=== PATIENT | male | born 1955 | race Caucasian/White ===

== ENCOUNTER 2020-09-14 17:39 | Inpatient (IN) ==
[2020-09-14] MEDS ORDERED: Furosemide 40 mg/4 ml IV VIAL IV SLOW PU ONE (18:41)
[2020-09-14 18:54] LABS: ABS Basophils 0.1 10^3/ul (0-0.2); ABS Eosinophils 0.1 10^3/ul (0-0.6); ABS Lymphocytes 1.3 10^3/ul (1.0-4.8); ABS Monocytes 0.7 10^3/ul (0-0.8); ABS Neutrophils 8.1 10^3/ul (1.5-7.7); Eosinophil % 0.5 %; Hematocrit 46 % (42-52); Hemoglobin 14.6 g/dL (14.0-18.0); Lymphocyte % 13.1 %; Mean Corpuscular HGB Conc 32 g/dL (31-36); Mean Corpuscular Hemoglobin 28 pg (27-31); Mean Corpuscular Volume 88 fL (80-94); Mean Platelet Volume 8.7 fL (7.4-10.4); Nucleated Red Blood Cells % 0.2; Platelet Count 255 10^3/uL (150-450); Red Blood Count 5.22 10^6 /uL (4.18-5.48); Red Cell Distribution Width 16 % (10-15); White Blood Count 10.3 10^3/uL (3.5-10.8)
[2020-09-14 18:59] LABS: Influenza A Molecular Negative (Negative); Influenza B Molecular Negative (Negative)
[2020-09-14 19:06] LABS: Activated Partial Thrombo Time 31.5 seconds (26.0-38.0); INR 1.08 (0.82-1.09)
[2020-09-14 19:11] LABS: ALT 16 U/L (7-52); AST 13 U/L (13-39); Albumin 3.7 g/dL (3.2-5.2); Alkaline Phosphatase 80 U/L (34-104); BUN/Creatinine Ratio 14.1 (8-20); Blood Urea Nitrogen 13 mg/dL (6-24); C Reactive Protein 21.92 mg/L (<8.01); Calcium 8.4 mg/dL (8.6-10.3); Chloride 93 mmol/L (101-111); EGFR African American 100.2 (>60); EGFR Non-African American 82.8 (>60); Globulin 3.6 g/dL (2-4); Glucose 119 mg/dL (70-100); Sodium 140 mmol/L (135-145); Total Protein 7.3 g/dL (6.4-8.9)
[2020-09-14 19:24] LABS: Anion Gap 4 mmol/L (2-11); CO2 Carbon Dioxide 43 mmol/L (22-32); Troponin I 0.04 ng/mL (<0.03)
[2020-09-14] MEDS ORDERED: cefTRIAXone 1 gm/50 mL NS BAG 1 GM/50 ML BAG IVPB SCH (19:30)
[2020-09-14] MEDS: methylPREDNISolone SOD 40 mg/ml 1 ml VIAL IV SCH (19:52)
[2020-09-14] MEDS: DOXYcycline 100 MG in NS 0.9% 250 ml 250 ML IVPB SCH (20:42)
[2020-09-14] MEDS: Bacitracin OPHTH.OINT 3.5 GM LEFT EYE SCH (21:23)
[2020-09-14 21:28] LABS: Urine Appearance Clear; Urine Bilirubin Negative (Negative); Urine Blood Negative (Negative); Urine Color Colorless; Urine Glucose Negative (Negative); Urine Ketones Negative (Negative); Urine Nitrite Negative (Negative); Urine Protein Negative (Negative); Urine Specific Gravity 1.003 (1.010-1.030); Urine Urobilinogen Negative (Negative)
[2020-09-14] MEDS ORDERED: Heparin 5000 UNITS/ML 1 mL VIAL SUBCUT SCH (22:00)
[2020-09-14] MEDS: Albuterol/Ipratropium NEB.SOL (2.5/0.5 MG) 3 ML NEB.SOLN INH SCH (22:09)
[2020-09-14] MEDS ORDERED: Lorazepam PYXIS KEY PRN (23:38)
[2020-09-14] MEDS ORDERED: LORazepam 2 mg VIAL 1 ml ONE (23:38)
[2020-09-14] MEDS ORDERED: Lorazepam PYXIS KEY ONE (23:38)
[2020-09-14] MEDS ORDERED: LORazepam 2 mg VIAL 1 ml IV PUSH ONE (23:38)
[2020-09-14] MEDS ORDERED: Haloperidol 5 mg/ml SDV IV/IM 5 MG/ML AMP ONE (23:43)
[2020-09-14] MEDS ORDERED: diPHENhydraMINE IV 50 MG/ML 1 ml VIAL (BENADRYL) ONE (23:44)
[2020-09-14] MEDS ORDERED: Succinylcholine 200 mg VIAL 20 mg/ml 10 ml VIAL (200 mg) ONE (23:45)
[2020-09-14] MEDS ORDERED: Rocuronium 50 mg VIAL 10 mg/ml 5 ml VIAL (50 mg) ONE (23:45)
[2020-09-14] MEDS ORDERED: Propofol 10 mg/ml 100 ML BTL 100 ML ONE (23:47)
[2020-09-14] MEDS ORDERED: Midazolam 10 mg/10 ml VIAL 1 mg/ml 10 ml VIAL (10 mg) ONE (23:52)
[2020-09-14] MEDS ORDERED: Etomidate 40 mg/20 ml (2 MG/ML) 20 ml VIAL (40 mg) ONE (23:52)
[2020-09-14] MEDS ORDERED: EPINEPHrine SYR 0.1MG/ML 10 ml SYRINGE ONE (23:59)
[2020-09-14] MEDS ORDERED: Atropine 0.1 MG/ML 10 ml SYR (1 mg) ONE (23:59)
[2020-09-15] MEDS ORDERED: Rocuronium 50 mg VIAL 10 mg/ml 5 ml VIAL (50 mg) ONE (00:07)
[2020-09-15] MEDS ORDERED: Atropine 0.1 MG/ML 10 ml SYR (1 mg) IV PUSH ONE (01:00)
[2020-09-15] MEDS ORDERED: EPINEPHrine SYR 0.1MG/ML 10 ml SYRINGE IV ONE (01:00)
[2020-09-15] MEDS ORDERED: Succinylcholine 200 mg VIAL 20 mg/ml 10 ml VIAL (200 mg) IV ONE (01:00)
[2020-09-15] MEDS ORDERED: Rocuronium 50 mg VIAL 10 mg/ml 5 ml VIAL (50 mg) IV ONE (01:00)
[2020-09-15] MEDS ORDERED: Phenylephrine INJ 50 MG in NS 0.9% IV SCH (01:26)
[2020-09-15] MEDS ORDERED: Phenylephrine 40 mcg/mL 10mL (400mcg) SYRINGE IV ONE (01:26)
[2020-09-15] MEDS ORDERED: Propofol 10 mg/ml 100 ML BTL 100 ML ONE ×4 (01:27→16:13)
[2020-09-15] MEDS ORDERED: Cisatracurium 100 MG in NS 0.9% 250 ML BAG 200 ML IV SCH (01:30)
[2020-09-15] MEDS ORDERED: Midazolam 2 mg/2 ml VIAL 1 mg/ml 2 ml VIAL (2 mg) ONE (01:36)
[2020-09-15] MEDS ORDERED: Cisatracurium 2 MG/ML MDV 5 ML ONE (02:21)
[2020-09-15 02:55] LABS: ABS Lymphocytes 0.4 10^3/ul (1.0-4.8); ABS Monocytes 0.1 10^3/ul (0-0.8); ABS Neutrophils 12.4 10^3/ul (1.5-7.7); Hematocrit 45 % (42-52); Hemoglobin 14.4 g/dL (14.0-18.0); Lymphocyte % 2.8 %; Mean Corpuscular HGB Conc 32 g/dL (31-36); Mean Corpuscular Hemoglobin 28 pg (27-31); Mean Corpuscular Volume 87 fL (80-94); Mean Platelet Volume 8.5 fL (7.4-10.4); Nucleated Red Blood Cells % 0.2; Platelet Count 261 10^3/uL (150-450); Red Blood Count 5.13 10^6 /uL (4.18-5.48); Red Cell Distribution Width 16 % (10-15); White Blood Count 12.9 10^3/uL (3.5-10.8)
[2020-09-15] MEDS: Albuterol/Ipratropium NEB.SOL (2.5/0.5 MG) 3 ML NEB.SOLN INH SCH ×7 (03:02→23:07)
[2020-09-15 03:05] LABS: Activated Partial Thrombo Time 30.7 seconds (26.0-38.0); INR 1.16 (0.82-1.09)
[2020-09-15 03:15] LABS: EGFR Non-African American 75.2 (>60)
[2020-09-15] MEDS: Chlorhexidine MOUTHWASH 0.12% 15 ML UDC TOPICAL SCH ×5 (04:24→17:59)
[2020-09-15 05:18] LABS: ABS Lymphocytes 0.6 10^3/ul (1.0-4.8); ABS Monocytes 0.3 10^3/ul (0-0.8); ABS Neutrophils 10.4 10^3/ul (1.5-7.7); Hematocrit 44 % (42-52); Lymphocyte % 5.5 %; Mean Corpuscular HGB Conc 32 g/dL (31-36); Mean Corpuscular Hemoglobin 28 pg (27-31); Mean Corpuscular Volume 87 fL (80-94); Mean Platelet Volume 8.6 fL (7.4-10.4); Nucleated Red Blood Cells % 0.3; Platelet Count 252 10^3/uL (150-450); Red Blood Count 5.08 10^6 /uL (4.18-5.48); Red Cell Distribution Width 16 % (10-15); White Blood Count 11.3 10^3/uL (3.5-10.8)
[2020-09-15 05:23] LABS: Activated Partial Thrombo Time 29.7 seconds (26.0-38.0); INR 1.16 (0.82-1.09)
[2020-09-15 05:27] LABS: ALT 17 U/L (7-52); AST 16 U/L (13-39); Albumin 3.2 g/dL (3.2-5.2); Alkaline Phosphatase 74 U/L (34-104); Anion Gap 7 mmol/L (2-11); BUN/Creatinine Ratio 16.7 (8-20); Blood Urea Nitrogen 17 mg/dL (6-24); CO2 Carbon Dioxide 40 mmol/L (22-32); Calcium 8.2 mg/dL (8.6-10.3); Chloride 93 mmol/L (101-111); EGFR Non-African American 73.5 (>60); Globulin 3.3 g/dL (2-4); Glucose 195 mg/dL (70-100); Magnesium 1.7 mg/dL (1.9-2.7); Potassium 3.6 mmol/L (3.5-5.0); Sodium 140 mmol/L (135-145); Total Protein 6.5 g/dL (6.4-8.9)
[2020-09-15 05:39] LABS: Phosphorus < 1.0 mg/dL (2.5-5.0)
[2020-09-15] MEDS: methylPREDNISolone SOD 40 mg/ml 1 ml VIAL IV SCH ×2 (05:53→17:59)
[2020-09-15] MEDS: Heparin 5000 UNITS/ML 1 mL VIAL SUBCUT SCH ×3 (05:56→22:11)
[2020-09-15] MEDS ORDERED: POTASSIUM PHOSPHATE IVPB ONE (06:30)
[2020-09-15] MEDS ORDERED: NS IVPB ONE (06:30)
[2020-09-15] MEDS ORDERED: Magnesium Sulfate 2 gm BAG 2 GM/50 ML BAG IVPB ONE (06:33)
[2020-09-15] MEDS: DOXYcycline 100 MG in NS 0.9% 250 ml 250 ML IVPB SCH (07:03)
[2020-09-15 07:31] LABS: Creatine Kinase 102 U/L (10-223)
[2020-09-15] MEDS: Pantoprazole VIAL 40 MG VIAL IV SCH (08:12)
[2020-09-15] MEDS ORDERED: Furosemide 40 mg/4 ml IV VIAL IV SLOW PU ONE (08:31)
[2020-09-15] MEDS ORDERED: Iohexol 350 (CONTRAST) 500 ML MDV IV ONE (08:44)
[2020-09-15] MEDS ORDERED: Perflutren Lipid Microsphere 3 ML VIAL ONE (08:57)
[2020-09-15 09:41] LABS: Troponin I 0.13 ng/mL (<0.03)
[2020-09-15 09:53] LABS: TSH Ultra Thyroid Stim Horm 2.91 mcIU/mL (0.34-5.60)
[2020-09-15] MEDS ORDERED: SODIUM PHOSPHATE IVPB SCH ×2 (10:00→14:00)
[2020-09-15] MEDS ORDERED: NS IVPB SCH ×2 (10:00→14:00)
[2020-09-15] MEDS ORDERED: Cefepime 2 GM in Dextrose 2 GM/50 ML BAG IV SCH (11:00)
[2020-09-15 12:30] LABS: Glucose 164 mg/dL (70-100)
[2020-09-15 14:46] LABS: Anion Gap 6 mmol/L (2-11); Blood Urea Nitrogen 19 mg/dL (6-24); CO2 Carbon Dioxide 40 mmol/L (22-32); Calcium 7.8 mg/dL (8.6-10.3); Chloride 94 mmol/L (101-111); EGFR Non-African American 75.2 (>60); Glucose 169 mg/dL (70-100); Potassium 3.8 mmol/L (3.5-5.0); Sodium 140 mmol/L (135-145)
[2020-09-15 15:18] LABS: Phosphorus 4.6 mg/dL (2.5-5.0)
[2020-09-15 16:17] LABS: Troponin I 0.18 ng/mL (<0.03)
[2020-09-15] MEDS ORDERED: KCL 20 MEQ/100 ML IVPREMIX 20 MEQ/100 ML BAG IV ONE (16:29)
[2020-09-15 16:51] LABS: Urine Benzodiazepine Screen Presumptive Positive (None Detect); Urine Cannabinoids Screen None Detected (None Detect); Urine Opiates Screen None Detected (None Detect)
[2020-09-15] MEDS: Propofol 10 mg/ml 100 ML BTL 100 ML IV SCH ×4 (17:05→23:23)
[2020-09-15] MEDS: Propofol* 20 ML VIAL - FOR IV LINE PRIMING ONLY SCH (17:10)
[2020-09-15] MEDS: cefTRIAXone 1 gm/50 mL NS BAG 1 GM/50 ML BAG IVPB SCH (18:00)
[2020-09-15] MEDS: metroNIDAZOLE IV 250 MG/50ML 50 ML IVPB SCH (19:29)
[2020-09-15] MEDS: Acyclovir IV 1,000 MG in NS 0.9% 250 ml 250 ML IVPB SCH (19:30)
[2020-09-15 20:40] LABS: Troponin I 0.17 ng/mL (<0.03)
[2020-09-15] MEDS: Bacitracin OPHTH.OINT 3.5 GM LEFT EYE SCH (22:13)
[2020-09-16] MEDS: Chlorhexidine MOUTHWASH 0.12% 15 ML UDC TOPICAL SCH ×7 (00:07→23:11)
[2020-09-16 01:04] LABS: Anion Gap 7 mmol/L (2-11); BUN/Creatinine Ratio 22.1 (8-20); Blood Urea Nitrogen 23 mg/dL (6-24); CO2 Carbon Dioxide 39 mmol/L (22-32); Calcium 7.5 mg/dL (8.6-10.3); Chloride 94 mmol/L (101-111); EGFR Non-African American 71.9 (>60); Glucose 188 mg/dL (70-100); Phosphorus 4.7 mg/dL (2.5-5.0); Potassium 3.9 mmol/L (3.5-5.0); Sodium 140 mmol/L (135-145)
[2020-09-16 01:06] LABS: Troponin I 0.15 ng/mL (<0.03)
[2020-09-16] MEDS: Propofol 10 mg/ml 100 ML BTL 100 ML IV SCH ×12 (01:31→23:11)
[2020-09-16] MEDS: metroNIDAZOLE IV 250 MG/50ML 50 ML IVPB SCH ×3 (03:32→19:21)
[2020-09-16] MEDS: Acyclovir IV 1,000 MG in NS 0.9% 250 ml 250 ML IVPB SCH ×3 (03:33→17:09)
[2020-09-16] MEDS: Propofol* 20 ML VIAL - FOR IV LINE PRIMING ONLY SCH ×3 (03:48→23:11)
[2020-09-16 04:01] LABS: ABS Lymphocytes 0.5 10^3/ul (1.0-4.8); ABS Monocytes 0.5 10^3/ul (0-0.8); ABS Neutrophils 9.5 10^3/ul (1.5-7.7); Hematocrit 42 % (42-52); Hemoglobin 13.7 g/dL (14.0-18.0); Lymphocyte % 5.2 %; Mean Corpuscular HGB Conc 32 g/dL (31-36); Mean Corpuscular Hemoglobin 28 pg (27-31); Mean Corpuscular Volume 86 fL (80-94); Mean Platelet Volume 8.5 fL (7.4-10.4); Platelet Count 275 10^3/uL (150-450); Red Blood Count 4.91 10^6 /uL (4.18-5.48); Red Cell Distribution Width 16 % (10-15); White Blood Count 10.5 10^3/uL (3.5-10.8)
[2020-09-16 04:17] LABS: BUN/Creatinine Ratio 23.5 (8-20); Calcium 7.4 mg/dL (8.6-10.3); EGFR Non-African American 73.5 (>60); Magnesium 2.1 mg/dL (1.9-2.7); Phosphorus 4.4 mg/dL (2.5-5.0); Potassium 3.6 mmol/L (3.5-5.0)
[2020-09-16] MEDS: methylPREDNISolone SOD 40 mg/ml 1 ml VIAL IV SCH ×3 (05:47→23:11)
[2020-09-16] MEDS: cefTRIAXone 1 gm/50 mL NS BAG 1 GM/50 ML BAG IVPB SCH ×2 (05:47→16:24)
[2020-09-16] MEDS: Heparin 5000 UNITS/ML 1 mL VIAL SUBCUT SCH ×3 (05:48→23:11)
[2020-09-16] MEDS ORDERED: Furosemide 40 mg/4 ml IV VIAL ONE (07:08)
[2020-09-16] MEDS: Furosemide 40 mg/4 ml IV VIAL IV SLOW PU SCH ×2 (07:14→07:23)
[2020-09-16] MEDS: Pantoprazole VIAL 40 MG VIAL IV SCH (07:15)
[2020-09-16] MEDS ORDERED: Albuterol/Ipratropium NEB.SOL (2.5/0.5 MG) 3 ML NEB.SOLN INH SCH (08:00)
[2020-09-16] MEDS: Albuterol/Ipratropium NEB.SOL (2.5/0.5 MG) 3 ML NEB.SOLN INH SCH ×8 (08:19→22:27)
[2020-09-16] MEDS: Acetylcysteine INHALATION SOL 200 MG/ML NEB.SOLN 10 ML INH SCH ×3 (08:19→20:21)
[2020-09-16] MEDS ORDERED: KCL 20 MEQ/100 ML IVPREMIX 20 MEQ/100 ML BAG IV ONE (09:11)
[2020-09-16 10:54] LABS: Resp Syncytial Virus Molecular Negative (Negative)
[2020-09-16] MEDS: Phenylephrine IV 50 MG in NS 0.9% 250 ml 245 ML IV SCH (11:55)
[2020-09-16 17:52] LABS: Calcium 7.3 mg/dL (8.6-10.3); EGFR African American 76.7 (>60); EGFR Non-African American 63.4 (>60); Potassium 3.9 mmol/L (3.5-5.0)
[2020-09-16 20:14] VITALS: BP 107/66
[2020-09-16] MEDS: Bacitracin OPHTH.OINT 3.5 GM LEFT EYE SCH (22:27)
[2020-09-17] MEDS: Albuterol/Ipratropium NEB.SOL (2.5/0.5 MG) 3 ML NEB.SOLN INH SCH ×9 (00:11→22:53)
[2020-09-17] MEDS: Propofol 10 mg/ml 100 ML BTL 100 ML IV SCH ×14 (00:44→22:41)
[2020-09-17] MEDS: Acetylcysteine INHALATION SOL 200 MG/ML NEB.SOLN 10 ML INH SCH ×3 (02:20→15:04)
[2020-09-17] MEDS: Acyclovir IV 1,000 MG in NS 0.9% 250 ml 250 ML IVPB SCH ×3 (02:36→18:18)
[2020-09-17] MEDS: metroNIDAZOLE IV 500 MG/100ML 500 MG/100 ML BAG IVPB SCH ×3 (03:23→19:34)
[2020-09-17] MEDS: Chlorhexidine MOUTHWASH 0.12% 15 ML UDC TOPICAL SCH ×6 (03:23→23:02)
[2020-09-17 04:30] LABS: ABS Basophils 0.1 10^3/ul (0-0.2); ABS Lymphocytes 0.3 10^3/ul (1.0-4.8); ABS Monocytes 0.5 10^3/ul (0-0.8); ABS Neutrophils 10.4 10^3/ul (1.5-7.7); Hematocrit 42 % (42-52); Hemoglobin 13.3 g/dL (14.0-18.0); Mean Corpuscular HGB Conc 31 g/dL (31-36); Mean Corpuscular Hemoglobin 27 pg (27-31); Mean Corpuscular Volume 87 fL (80-94); Mean Platelet Volume 8.6 fL (7.4-10.4); Platelet Count 261 10^3/uL (150-450); Red Blood Count 4.85 10^6 /uL (4.18-5.48); Red Cell Distribution Width 16 % (10-15); White Blood Count 11.2 10^3/uL (3.5-10.8)
[2020-09-17 04:54] LABS: BUN/Creatinine Ratio 28.3 (8-20); EGFR African American 79.1 (>60); EGFR Non-African American 65.3 (>60); Magnesium 2.2 mg/dL (1.9-2.7); Potassium 3.6 mmol/L (3.5-5.0)
[2020-09-17] MEDS: Heparin 5000 UNITS/ML 1 mL VIAL SUBCUT SCH ×3 (05:59→21:46)
[2020-09-17] MEDS: cefTRIAXone 1 gm/50 mL NS BAG 1 GM/50 ML BAG IVPB SCH ×2 (05:59→17:03)
[2020-09-17] MEDS: methylPREDNISolone SOD 40 mg/ml 1 ml VIAL IV SCH ×3 (06:00→21:46)
[2020-09-17] MEDS: Furosemide 40 mg/4 ml IV VIAL IV SLOW PU SCH (07:57)
[2020-09-17] MEDS: Pantoprazole VIAL 40 MG VIAL IV SCH (07:57)
[2020-09-17] MEDS: KCL 20 MEQ/100 ML IVPREMIX 20 MEQ/100 ML BAG IV SCH ×2 (08:46→11:05)
[2020-09-17] MEDS: Propofol* 20 ML VIAL - FOR IV LINE PRIMING ONLY SCH (16:26)
[2020-09-17 18:57] LABS: BUN/Creatinine Ratio 32.6 (8-20); EGFR African American 100.2 (>60); EGFR Non-African American 82.8 (>60); Potassium 4.2 mmol/L (3.5-5.0)
[2020-09-17] MEDS: Bacitracin OPHTH.OINT 3.5 GM LEFT EYE SCH (20:51)
[2020-09-17] MEDS ORDERED: Albuterol/Ipratropium NEB.SOL (2.5/0.5 MG) 3 ML NEB.SOLN ONE (22:54)
[2020-09-18] MEDS ORDERED: Phenylephrine IV 10 MG/ML 1 ml VIAL ONE (00:15)
[2020-09-18] MEDS: Propofol 10 mg/ml 100 ML BTL 100 ML IV SCH ×10 (00:19→13:35)
[2020-09-18] MEDS: Phenylephrine IV 50 MG in NS 0.9% 250 ml 245 ML IV SCH ×2 (00:20→00:22)
[2020-09-18] MEDS: Acyclovir IV 1,000 MG in NS 0.9% 250 ml 250 ML IVPB SCH ×2 (01:44→10:46)
[2020-09-18] MEDS: Chlorhexidine MOUTHWASH 0.12% 15 ML UDC TOPICAL SCH ×4 (01:57→15:11)
[2020-09-18] MEDS: Albuterol/Ipratropium NEB.SOL (2.5/0.5 MG) 3 ML NEB.SOLN INH SCH ×4 (03:00→15:53)
[2020-09-18] MEDS: metroNIDAZOLE IV 500 MG/100ML 500 MG/100 ML BAG IVPB SCH ×2 (03:27→12:40)
[2020-09-18 04:50] LABS: ABS Lymphocytes 0.3 10^3/ul (1.0-4.8); ABS Monocytes 0.5 10^3/ul (0-0.8); ABS Neutrophils 8.7 10^3/ul (1.5-7.7); Hematocrit 40 % (42-52); Hemoglobin 12.8 g/dL (14.0-18.0); Mean Corpuscular HGB Conc 33 g/dL (31-36); Mean Corpuscular Hemoglobin 28 pg (27-31); Mean Corpuscular Volume 86 fL (80-94); Mean Platelet Volume 8.6 fL (7.4-10.4); Nucleated Red Blood Cells % 0.1; Platelet Count 242 10^3/uL (150-450); Red Cell Distribution Width 16 % (10-15); White Blood Count 9.4 10^3/uL (3.5-10.8)
[2020-09-18 05:22] LABS: Albumin 2.9 g/dL (3.2-5.2); BUN/Creatinine Ratio 38.9 (8-20); Calcium 7.1 mg/dL (8.6-10.3); EGFR African American 102.8 (>60); Magnesium 2.2 mg/dL (1.9-2.7); Phosphorus 4.1 mg/dL (2.5-5.0); Potassium 4.2 mmol/L (3.5-5.0); Total Bilirubin 0.3 mg/dL (0.2-1.0); Total Protein 5.9 g/dL (6.4-8.9)
[2020-09-18] MEDS: methylPREDNISolone SOD 40 mg/ml 1 ml VIAL IV SCH ×2 (05:24→13:21)
[2020-09-18] MEDS: Heparin 5000 UNITS/ML 1 mL VIAL SUBCUT SCH ×2 (05:24→13:21)
[2020-09-18] MEDS: Propofol* 20 ML VIAL - FOR IV LINE PRIMING ONLY SCH (05:25)
[2020-09-18] MEDS: cefTRIAXone 1 gm/50 mL NS BAG 1 GM/50 ML BAG IVPB SCH (05:32)
[2020-09-18] MEDS: Furosemide 40 mg/4 ml IV VIAL IV SLOW PU SCH (07:26)
[2020-09-18] MEDS: Pantoprazole VIAL 40 MG VIAL IV SCH (07:26)
[2020-09-18] MEDS ORDERED: fentaNYL 100 mcg/2 ml 50 MCG/ML VIAL ONE (08:17)
[2020-09-18] MEDS: fentaNYL 100 mcg/2 ml 50 MCG/ML VIAL IV SLOW PU PRN ×2 (08:20→12:32)
[2020-09-18] MEDS ORDERED: Rocuronium 50 mg VIAL 10 mg/ml 5 ml VIAL (50 mg) ONE (13:11)
[2020-09-18] MEDS ORDERED: MORPHINE 5 MG/ML PCA SCH (15:00)
[2020-09-18] MEDS ORDERED: Morphine 4 MG/ML VIAL (1 ml) IV PRN (15:07)
== END 2020-09-18 15:30 | disposition expired | DRG 208 ==
LOC: ED 17:39 → ICU 18:36
PROVIDERS: ADMIT Internal Medicine; ATTEND Internal Medicine